=== PATIENT | female | born 1965 | race Caucasian/White ===

== ENCOUNTER 2024-09-26 11:13 | Inpatient (IN) | payer MEDICAID, SELFPAY ==
[2024-09-26] VITALS (7 sets, daily range): BP systolic 110–143; BP diastolic 61–86; PULSE 86–118; RESP 18; TEMP 36.2–37.4; O2SAT 98–100; BMI 28.0; BMI 25.8
--- NOTE | 2024-09-26 11:24 | EKG_ITS ---
[facility] Test Date: 2024-09-26 Pat Name: BETTE FLORES Department: Room: - Gender: Female Director Regulatory Affairs: : 1965 Requested By: Luis Kirkpatrick Order Number: [id number] Reading MD: Luis Kirkpatrick Measurements Intervals [place] Rate: 95 P: 77 OH: 100 QRS: -7 QRSD: 86 T: 48 QT: 364 QTc: 460 Interpretive Statements SINUS RHYTHM WITH SHORT OH INTERVAL Compared to ECG 07/12/2024 13:32:00 Short OH interval now present /store/S0/[id number].pdf
--- NOTE | 2024-09-26 11:25 | XR_ITS ---
Examination: Abdomen AP single view Technique: AP portable supine abdomen, single view Exam date and time: September 26, 2024 1252 hours INDICATIONS: Sepsis alert FINDINGS: Moderate stool throughout the colon No obstruction No free air Multiple calcific densities overlying the left kidney including possibly in the left renal pelvis IMPRESSION: Multiple left renal calculi
--- NOTE | 2024-09-26 11:25 | PD.EDADULT ---
ED General RME/HPI General Chief complaint: Altered Mental Status Stated complaint: AMS Time Seen by Provider: 09/26/24 11:23 Arrival date/time: 09/26/24 11:13 CC: Weakness HPI patient presents the ER via EMS for generalized weakness over the past 7 days states the patient can no longer stand which is new. EMS report the patient began altered mental status. Patient is complaining severely of rectal pain secondary to anal fissures. Patient is pale appearing, awake alert oriented self and place. Patient has no other complaints other than general weakness. At 1229 I spoke with the who came at bedside. He explains that the patient has run out of pain medications over the holidays cannot get a refill, since then the patient is reluctant to eat secondary to rectal pain and bowel movement so she stopping having bowel movements and have increased in weakness. Related Data Previous Rx's ?Medication ?Instructions ?Recorded lidocaine 5 % topical cream 1 applic topical BID PRN pain #30 07/13/24 grams oxycodone-acetaminophen 5 mg-325 1 tab PO Q6H PRN pain #60 tabs 07/13/24 mg tablet tramadol 100 mg tablet 100 mg PO Q6H PRN pain #60 tabs 07/26/24 ibuprofen 600 mg tablet 600 mg PO Q6H PRN 6 tabs #30 tabs 07/29/24 Allergies Allergy/AdvReac Type Severity Reaction Status Date / Time No Known Allergies Allergy Verified 07/13/24 11:58 Review of Systems Review of Systems Narrative Review of Systems: GEN: No fever, no chills, no weight loss EYES: No discharge, no visual changes, no pain HEENT: No ear pain, no congestion, no sore throat PULM: No shortness of breath, no cough, no congestion CV: No chest pain, no dyspnea on exertion, no palpitations GI: No nausea, no vomiting, no diarrhea, no pain, no constipation : No frequency, no urgency, no dysuria MUSC/SKEL: No joint pain, no back pain SKIN: No rash PSYCH: No hallucinations, no depression HEME/LYMPH: No easy bleeding or bruising tendencies NEURO: + weakness, no headache Past Medical History Past Medical History NEUROLOGIC: Negative Neurological Disorders or Seizures CARDIAC: Negative Cardiac Disorders or Congestive Heart Failure RESPIRATORY: Negative Chronic Obstructive Pulmonary Disease (COPD) GASTROINTESTINAL: Negative Gastrointestinal Disorders GENITOURINARY: Negative Genitourinary Disorders or Renal Disease REPRODUCTIVE: Positive Previous Pregnancies MUSCULOSKELETAL: Negative Musculoskeletal Disorders ENDOCRINE: Negative Endocrine Disorders, Diabetes Mellitus Type 1 or Diabetes Mellitus Type 2 HEMATOLOGIC: Positive Blood Disorders and Anemia OTHER HISTORY: Positive Blood Transfusions, Chicken Pox, Measles and Mumps; Negative Hospitalization, Autoimmune Disease, Shingles, Blood Transfusion Reaction, Anesthesia Reactions or Cancer Family History FAMILY HISTORY: Negative Family Psychiatric Problems, Family Respiratory Disorders, Family Cardiac Disorders, Family Gastrointestinal Problems, Family Cancer, Family Surgery or Family Anesthesia Reaction Social History SMOKING STATUS: Never smoker SUBSTANCE USE: does not use ED Exam Narrative Physical exam: [General: In moderate discomfort but not in any acute distress Head normocephalic HEENT: Eyes pupils are PERRLA EOMs are intact. Within acceptable limits Neck is supple nontender no JVD no edema Chest equal chest rise nontender to palpation Respiratory: Clear to auscultation no wheezes crackles or rubs CV: Rate rhythm is regular no murmurs rubs or clicks Abdomen is distended secondary to body habitus soft nontender no masses positive bowel sounds all 4 quadrants Back: No CVA tenderness no spinous process tenderness from cervical spine thoracic and lumbar spine Skin: Pale, intact no petechiae rash induration ulceration or crepitus Extremities: Moving all extremity against resistance cap refill less than 2 seconds neurosensory intact Neuro: Awake alert oriented x2, person and place, Glascow coma 15 no focal deficits] Course Course Course Narrative: Reassessment the patient met at 1515, CT showed the patient has significant definitely enlarged bladder. Humphries catheter was placed approximately 2.5 L of dark-colored urine was drained and it continues to drain. A total of 2600 mL drained from the bladder. Patient's condition discussed with , they are aware of the mass in the abdomen. At this time they directed me to pursue how they can fight this mass. Patient's case then discussed with Dr. Meek, who recommends the patient be admitted to ensure that there is a return to normalcy of the renal function as well as arrange for biopsy of the mass if possible with ultimate referral to oncology if necessary. Family members are in agreement with this plan. Discussed the case with Dr. Agusto Gordillo and Dr. Hadley who agreed to accept the patient for admission. 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 Care 09/26/24 11:24 Active Continuous Pulse Oximetry STAT Care 09/26/24 11:24 Completed EKG (ED ONLY) *Do not use* NOW Care 09/26/24 11:24 Completed Humphries [Urinary Catheter] QS Care 09/26/24 14:55 Active In and Out Catheter X1PRN Care 09/26/24 11:24 Completed Insert IV NOW Care 09/26/24 11:24 Active NPO NOW Care 09/26/24 17:51 Active NPO STAT Care 09/26/24 11:24 Active Notify provider NEEDED Care 09/26/24 17:48 Active Obtain weight daily Care 09/26/24 17:49 Active Strict Intake and Output Routine Care 09/26/24 11:24 Ordered Consult to General Surgery Stat Cons 09/26/24 16:41 Ordered Consult to General Surgery Stat Cons 09/26/24 17:58 Ordered Consult to Oncology Stat Cons 09/26/24 17:59 Ordered Diet NPO (NOW) Diet 09/26/24 17:[address] abdomen pelvis wo con Stat Exams 09/26/24 13:05 Completed EKG (ED Only) Stat Exams 09/26/24 11:24 Draft IR biopsy transcatheter Stat Exams 09/26/24 Ordered XR abdomen 1V Stat Exams 09/26/24 11:25 Completed A1C [Glycohemoglobin w (eAG)] AM DRAW Lab 09/27/24 05:00 Ordered B-Type Natriuretic Peptide Stat Lab 09/26/24 11:47 Completed Blood Culture (Lab) Stat Lab 09/26/24 11:47 Received CBC AM DRAW Lab 09/28/24 05:00 Ordered CBC AM DRAW Lab 09/29/24 05:00 Ordered CBC AM DRAW Lab 09/27/24 05:00 Ordered CBC Stat Lab 09/26/24 11:47 Completed Comprehensive Metabolic Panel AM DRAW Lab 09/28/24 05:00 Ordered Comprehensive Metabolic Panel AM DRAW Lab 09/29/24 05:00 Ordered Comprehensive Metabolic Panel AM DRAW Lab 09/27/24 05:00 Ordered Comprehensive Metabolic Panel Stat Lab 09/26/24 11:47 Completed LDH (Lactate Dehydrogenase) Stat Lab 09/26/24 11:47 Completed Lactate (Lactic Acid) Stat Lab 09/26/24 11:47 Completed Lipase Stat Lab 09/26/24 11:47 Completed Lipid Panel AM DRAW Lab 09/27/24 05:00 Ordered Magnesium AM DRAW Lab 09/28/24 05:00 Ordered Magnesium AM DRAW Lab 09/29/24 05:00 Ordered Magnesium AM DRAW Lab 09/27/24 05:00 Ordered Magnesium Stat Lab 09/26/24 11:47 Completed Partial Thromboplastin Time AM DRAW Lab 09/27/24 05:00 Ordered Partial Thromboplastin Time Stat Lab 09/26/24 11:47 Completed Phosphorous AM DRAW Lab 09/28/24 05:00 Ordered Phosphorous AM DRAW Lab 09/29/24 05:00 Ordered Phosphorous AM DRAW Lab 09/27/24 05:00 Ordered Phosphorous Stat Lab 09/26/24 11:47 Completed Procalcitonin Stat Lab 09/26/24 11:47 Completed Prothrombin Time with INR AM DRAW Lab 09/28/24 05:00 Ordered Prothrombin Time with INR AM DRAW Lab 09/29/24 05:00 Ordered Prothrombin Time with INR AM DRAW Lab 09/27/24 05:00 Ordered Prothrombin Time with INR Stat Lab 09/26/24 11:47 Completed Thyroid Stimulating Hormone AM DRAW Lab 09/27/24 05:00 Ordered Troponin I AM DRAW Lab 09/27/24 05:00 Ordered Troponin I Stat Lab 09/26/24 11:47 Completed Type and Screen Stat Lab 09/26/24 11:47 Completed Urinalysis Stat Lab 09/26/24 12:36 Completed Urine Culture Stat Lab 09/26/24 12:36 Received Acetaminophen Tab [Tylenol Tab] Med 09/26/24 17:53 Active 650 mg PO Q6H PRN Folic Acid Med 09/29/24 09:00 Active 1 mg PO QDAY Folic Acid Inj Med 09/27/24 09:00 Active 1 mg IVP QDAY HYDROcodone*/APAP 5/325 [[place]ster 5/325] Med 09/26/24 17:53 Active 1 tab PO Q4HR PRN HYDROmorphone INJ [Dilaudid Inj] Med 09/26/24 17:53 Discontinued 0.5 mg IVP Q6HR PRN Heparin Inj Med 09/26/24 21:00 Active 5,000 unit SC Q12HR Magnesium Sulfate 2 GM Ivpb [Magnesium Sulfate Ivpb] Med 09/26/24 18:01 Discontinued 2 gm in 50 ml IV X1 Morphine Inj Med 09/26/24 12:29 Discontinued 4 mg IVP X1 ONE Morphine Inj Med 09/26/24 15:00 Discontinued 4 mg IVP X1 ONE Ondansetron Inj [Zofran Inj] Med 09/26/24 17:53 Active 4 mg IV Q6H PRN Ondansetron Inj [Zofran Inj] Med 09/26/24 12:29 Discontinued 4 mg IV X1 ONE Pantoprazole Inj [Protonix Inj] Med 09/26/24 21:00 Active 40 mg IVP Q12HR Sodium Chloride 0.9% 1000 ml [Ns] 1,000 ml Med 09/26/24 13:23 Discontinued IV 999 mls/hr Thiamine Inj [Vitamin B-1 Inj] Med 09/27/24 09:00 Active 100 mg IVP QDAY Thiamine [Vitamin B-1] Med 09/29/24 09:00 Discontinued 100 mg PO QDAY Code Status Routine Oth 09/26/24 17:48 Ordered Oxygen Delivery NOW RT 09/26/24 11:24 Active Vital Signs Vital signs: Vital Signs Temperature 97.5 F 09/26/24 11:20 Pulse Rate 105 H 09/26/24 11:20 Respiratory Rate 18 09/26/24 11:20 Blood Pressure 119/71 09/26/24 11:20 Pulse Oximetry (%) 100 09/26/24 11:20 Oxygen Delivery Method Room Air 09/26/24 11:20 [facility] Patient data External records reviewed:: [facility] previous records and EMS form Clinical information provided by:: patient and EMS Social determinants that could affect healthcare access:: none Patient has the following chronic illnesses:: Review of the medical record show the patient has recently diagnosed with anal carcinoma is followed by Dr. Meek How is presenting disease/condition affected by chronic disease/condition?: uneffected by Evaluation data The following diagnostics were reviewed and interpreted by me:: lab results, radiology exam(s) and EKG tracing(s) Lab and/or radiology exams considered but not ordered:: EKG performed at 1455 shows a ventricular rate of 95 OK interval 100 QRS of 86 QTc of 417 is normal sinus rhythm. Baseline artifact. CBC shows leukocytosis of 14.6 with an anemia of hemoglobin of 7.1 hematocrit 22.5 with platelets of 177 Coags PT 13.1 INR 1.2 PTT 25.0 CMP shows sodium 136 potassium 3.6 chloride of 102 CO2 of 16.7 BUN of 57 creatinine 1.9 glucose 153. Lactic of 1.9 Pro-Geremias is 0.24 Mag of 2.9 AST 51 alk phos of 230 LDH of 1148 Troponin of 0.048 BNP of [address] of the abdomen as interpreted by radiology shows a large complex mass in the left abdomen with mural calcifications 15 x 16 x 11 cm but also moderate hydronephrosis with a pronounced bladder distention. Interpretation Summary: Renal insufficiency indicated in the blood work is probably secondary to a obstructive uropathy most likely related the patient's abdominal mass. Medications Medications considered but not ordered:: None Medication administrations:: Medication Administration History Acetaminophen (Acetaminophen 325 Mg Tablet) 650 mg PO Q6H PRN PRN Reason: Fever >101.5 Stop: 10/26/24 17:52 Hydrocodone Bitart/Acetaminophen (Hydrocodone/Apap 5/325 Tablet) 1 tab PO Q4HR PRN PRN Reason: PAIN SCALE 4-6 (Moderate Stop: 10/01/24 17:52 Folic Acid (Folic Acid 1 Mg Tablet) 1 mg PO QDAY [facility] Stop: 10/29/24 08:59 Folic Acid (Folic Acid Inj 1 Mg/0.2 Ml) 1 mg IVP QDAY [facility] Stop: 09/29/24 08:59 Heparin Sodium (Porcine) (Heparin Sod Inj 5000 Unit/Ml Vial) 5,000 unit SC Q12HR [facility] Stop: 10/10/24 20:59 Last Admin: 09/26/24 21:01 Dose: 5,000 unit Documented By: JEFFERY Co-signed By: CG Hydromorphone HCl (Hydromorphone Inj 2 Mg/Ml Vial) 1 mg IVP Q4HR PRN PRN Reason: PAIN Stop: 10/01/24 17:52 Ceftriaxone Sodium/Dextrose (Rocephin/D5w 1gm Iv Premix) 50 mls @ 100 mls/hr IV QDAY [facility] Stop: 10/03/24 18:38 Last Admin: 09/26/24 19:56 Dose: 100 mls/hr Documented By: JEFFERY Ondansetron HCl (Ondansetron Inj 2 Mg/Ml Inj 2 Ml) 4 mg IV Q6H PRN; Protocol PRN Reason: NAUSEA OR VOMITING Stop: 10/26/24 17:52 Pantoprazole Sodium (Pantoprazole Inj 40 Mg Vial) 40 mg IVP Q12HR [facility] Stop: 10/26/24 20:59 Last Admin: 09/26/24 21:01 Dose: 40 mg Documented By: JEFFERY Thiamine HCl (Thiamine Inj 100 Mg/Ml Vial 2 Ml) 100 mg IVP QDAY [facility] Stop: 09/29/24 08:59 Discontinued Medications Hydromorphone HCl (Hydromorphone Inj 2 Mg/Ml Vial) 0.5 mg IVP Q6HR PRN PRN Reason: PAIN Stop: 10/01/24 17:52 Sodium Chloride (Ns) 1,000 mls @ 999 mls/hr IV .Q1H1M ONE Stop: 09/26/24 14:23 Last Infusion: 09/26/24 15:39 Dose: Infused Documented By: Admin: 09/26/24 13:27 Dose: 999 mls/hr Documented By: DEONDRE Magnesium Sulfate (Magnesium Sulfate Ivpb) 2 gm in 50 mls @ 25 mls/hr IV X1 ONE Stop: 09/26/24 20:00 Last Admin: 09/26/24 18:38 Dose: Not Given Documented By: DEONDRE Non-Admin Reason: Contraindicated Comments: Dont give per Dr. Tate Morphine Sulfate (Morphine Sulf Inj 10 Mg/Ml Vial) 4 mg IVP X1 ONE Stop: 09/26/24 12:30 Last Admin: 09/26/24 12:40 Dose: 4 mg Documented By: DEONDRE Morphine Sulfate (Morphine Sulf Inj 10 Mg/Ml Vial) 4 mg IVP X1 ONE Stop: 09/26/24 15:01 Last Admin: 09/26/24 15:04 Dose: 4 mg Documented By: DEONDRE Ondansetron HCl (Ondansetron Inj 2 Mg/Ml Inj 2 Ml) 4 mg IV X1 ONE; Protocol Stop: 09/26/24 12:30 Last Admin: 09/26/24 12:39 Dose: 4 mg Documented By: DEONDRE Thiamine HCl (Thiamine 100 Mg Tablet) 100 mg PO QDAY [facility] Stop: 10/29/24 08:59 None Consultations Consultation(s) initiated? (list below): Yes Diagnosis Differential Diagnosis ED Complaint MDM: Abdominal mass rectal mass dehydration urinary retention Most likely diagnosis given after review of the tests above:: Abdominal mass dehydration urinary retention Admission Indicated Admission indicated?: indicated Explain why admission is indicated or not indicated:: Requires further medical management Admission Request Was there a request for admission?: No Disposition Plan Disposition Plan: Admit Medical Decision Making Differential Diagnosis Differential Diagnosis: Abdominal mass rectal mass dehydration urinary retention Lab Data 09/26/24 11:47 09/26/24 11:47 Labs: Lab Results 09/26/24 09/26/24 Range/Units 11:47 12:36 WBC 14.6 H (3.6-11.0) Thou/mm3 RBC 2.73 L (4.00-5.20) Miln/mm3 Hgb 7.1 L (12.0-16.0) g/dL Hct 22.5 L (36.0-46.0) % MCV 82 (80-100) fL MCH 26.0 (25.0-35.0) pg MCHC 31.6 (31.0-37.0) g/dl RDW Std Deviation 75.4 H (36.4-46.3) fL Plt Count 177 (140-440) Thou/mm3 Neut % (Auto) 63 (37-80) % Lymph % (Auto) 18 (10-50) % Barton % (Auto) 11 (0-12) % Eos % (Auto) 1 (0-10) % Baso % (Auto) 1 (0-2.5) % Neut # (Auto) 9.2 H (1.8-7.7) Thou/mm3 Lymph # (Auto) 2.6 (1.0-4.8) Thou/mm3 Barton # (Auto) 1.5 H (0.0-0.8) Thou/mm3 Eos # (Auto) 0.1 (0.0-0.5) Thou/mm3 Baso # (Auto) 0.1 (0.0-0.2) Thou/mm3 Immature Gran # (Auto) 1.02 H (0.00-0.00) Thou/mm3 Absolute Nucleated RBC 0.52 H (0.00-0.00) Thou/mm3 Immature Gran % 7 H (0-0) % Nucleated RBC % 4 H (0) /100 WBC PT 13.1 H (9.0-12.2) Seconds INR 1.2 (0.9-1.3) APTT 25.0 (22.0-36.0) Seconds Sodium 136 (136-145) mMol/L Potassium 3.6 (3.4-5.1) mMol/L Chloride 102 (98-107) mMol/L Carbon Dioxide 16.7 L (20.0-31.0) mMol/L Anion Gap 17 H (7-16) BUN 57 H (9-23) mg/dL Creatinine 1.9 H (0.6-1.3) mg/dL Estim Creat Clear Calc 33.4 L (>60) mL/min eGFR 30 L (60 - ) See Note BUN/Creatinine Ratio 30 H (12-20) Ratio Glucose 153 H (74-106) mg/dL Calculated Osmolality 290 (275-295) Lactic Acid 1.9 (0.4-2.0) mMol/L Calcium 9.4 (8.3-10.6) mg/dL Corrected Calcium 9.4 (8.5-10.1) mg/dL Phosphorus 4.8 (2.4-5.1) mg/dL Magnesium 2.9 H (1.6-2.6) mg/dL Total Bilirubin 0.5 (0.3-1.2) mg/dL AST 51 H (0-34) U/L ALT < 7 L (10-49) U/L Alkaline Phosphatase 230 H (46-116) U/L Lactate Dehydrogenase 1148 H (120-246) U/L Total Creatine Kinase 382 H (34-171) U/L Troponin I 0.048 H* (0.0-0.045) ng/mL B-Natriuretic Peptide 92 (0-100) pg/mL Total Protein 7.2 (5.7-8.2) gm/dL Albumin 4.3 (3.4-4.8) gm/dL Globulin 2.9 (2.3-3.5) gm/dL Albumin/Globulin Ratio 1.5 (1.2-2.2) Lipase 51 (12-53) U/L Procalcitonin 0.24 (0.0-0.49) ng/ml Ur Collection Type Clean Catch Urine Color Yellow (Lt Yel-Yel) Urine Clarity Hazy (Clear/Hazy) Urine pH 5.5 (5.0-7.0) Ur Specific [place] 1.022 (1.001-1.035) Urine Protein 1+ A (Neg - Trace) Urine Glucose (UA) Negative (Negative) Urine Ketones Negative (Negative) Urine Blood 3+ A (Negative) Urine Nitrite Negative (Negative) Urine Bilirubin Negative (Negative) Urine Urobilinogen (Auto) Negative (0.0-1.0) mg/dL Ur Leukocyte Esterase Positive (Negative) Urine RBC 119 H (0-3) /hpf Urine WBC 10 H (0-5) /hpf Ur Squamous Epith Cells 1 (0-5) /hpf Urine Bacteria None (None) Blood Type O Negative Antibody Screen NEGATIVE Blood Bank Wristband ID Yes Discharge Plan Plan Patient Disposition: Admit Acute Care w/in Hospital Patient condition on transfer: Stable Problem List Clinical Impression: Acute renal insufficiency, Acute urinary retention, Abdominal mass, Pain, rectal PA/SPECIAL EFFECTS TECHNICIAN Supervising Physician PA/SPECIAL EFFECTS TECHNICIAN Supervising Physician: Luis Beebe ENP
[2024-09-26 11:56] LABS: Lactate (Lactic Acid) 1.9 mMol/L (0.4-2.0)
[2024-09-26 12:03] LABS: Basophils # (Auto) 0.1 Thou/mm3 (0.0-0.2); Basophils % (Auto) 1 % (0-2.5); Eosinophils # (Auto) 0.1 Thou/mm3 (0.0-0.5); Eosinophils % (Auto) 1 % (0-10); Hematocrit 22.5 % (36.0-46.0); Immature Granulocytes % (Auto) 7 % (0-0); Immature Granulocytes Auto 1.02 Thou/mm3 (0.00-0.00); Lymphocytes # (Auto) 2.6 Thou/mm3 (1.0-4.8); Lymphocytes % (Auto) 18 % (10-50); Mean Corpuscular HGB Conc 31.6 g/dl (31.0-37.0); Mean Corpuscular Volume 82 fL (80-100); Monocytes # (Auto) 1.5 Thou/mm3 (0.0-0.8); Monocytes % (Auto) 11 % (0-12); Neutrophils # (Auto) 9.2 Thou/mm3 (1.8-7.7); Neutrophils % (Auto) 63 % (37-80); Nucleated Red Blood Cell # 0.52 Thou/mm3 (0.00-0.00); Nucleated Red Blood Cell % 4 /100 WBC (0); Platelet Count 177 Thou/mm3 (140-440); RDW Standard Deviation 75.4 fL (36.4-46.3); Red Blood Count 2.73 Miln/mm3 (4.00-5.20); White Blood Count 14.6 Thou/mm3 (3.6-11.0)
[2024-09-26 12:08] LABS: Hemoglobin 7.1 g/dL (12.0-16.0)
[2024-09-26 12:15] LABS: B-Type Natriuretic Peptide 92 pg/mL (0-100)
[2024-09-26 12:17] LABS: INR 1.2 (0.9-1.3); Prothrombin Time 13.1 Seconds (9.0-12.2)
[2024-09-26 12:30] LABS: Alanine Aminotransferase < 7 U/L (10-49); Albumin, Serum 4.3 gm/dL (3.4-4.8); Albumin/Globulin Ratio 1.5 (1.2-2.2); Alkaline Phosphatase 230 U/L (46-116); Anion Gap 17 (7-16); Aspartate Amino Transferase 51 U/L (0-34); BUN/Creatinine Ratio 30 Ratio (12-20); Bilirubin,Total 0.5 mg/dL (0.3-1.2); Blood Urea Nitrogen 57 mg/dL (9-23); Calcium 9.4 mg/dL (8.3-10.6); Calcium (Corrected) 9.4 mg/dL (8.5-10.1); Carbon Dioxide 16.7 mMol/L (20.0-31.0); Chloride 102 mMol/L (98-107); Creatinine (Component) 1.9 mg/dL (0.6-1.3); Estimated Creatinine Clearance 33.4 mL/min (>60); Globulin 2.9 gm/dL (2.3-3.5); Glucose 153 mg/dL (74-106); LDH (Lactate Dehydrogenase) 1148 U/L (120-246); Lipase 51 U/L (12-53); Magnesium 2.9 mg/dL (1.6-2.6); Osmolality,Calculated 290 (275-295); Phosphorous 4.8 mg/dL (2.4-5.1); Potassium 3.6 mMol/L (3.4-5.1); Procalcitonin 0.24 ng/ml (0.0-0.49); Sodium 136 mMol/L (136-145); Total Protein 7.2 gm/dL (5.7-8.2); eGFR 30 See Note
[2024-09-26 12:33] LABS: Troponin I 0.048 ng/mL (0.0-0.045)
[2024-09-26] MEDS: ONDANSETRON INJ 2 MG/ML INJ 2 ML 4 MG IV (12:39)
[2024-09-26] MEDS: MORPHINE SULF INJ 10 MG/ML VIAL 4 MG IVP ×2 (12:40→15:04)
[2024-09-26 12:50] LABS: Collection Type, Urine Clean Catch
--- NOTE | 2024-09-26 13:05 | XR_ITS ---
Examination: CT abdomen and pelvis without contrast. Coronal 3-D reconstructions. Sagittal 2-D reconstructions. Date and time of exam:September 26, 2024 at 1346 hours INDICATIONS: Onset rectal pain today CTDI: vol (mGy): 7.58 DLP: (mGycm): 452 Technique: Axial images of the abdomen have been obtained, 3 mm slice thickness Intravenous contrast material has not been administered. Low dose protocols were performed. One or more of the following dose reduction techniques were used; automated exposure control, adjustment of the mA and/or KV according to patient size, use of iterative reconstruction technique. Findings: Right lower lobe solid 38 mm liver lesion Numerous gallstones No pancreatic mass Nodular thickening both adrenal glands Bilateral multiple renal calculi ranging in size from 1 - 5 mm Mild to moderate hydronephrosis likely related to pronounced bladder distention Abdominal aortic calcification no aneurysmal dilatation Left abdomen partially cystic mass with mural thickening and calcifications, the mass measures 15 x 16 x 11 cm Marked abnormal thickening of the rectosigmoid, the beltran of the rectum measuring up to 4 cm severely impinging upon the rectal lumen Severe osteopenia 12 mm radiolucent lesion in the S3 vertebral body sagittal image 118 IMPRESSION: Findings most consistent with rectal tumor, recommend direct inspection 30 mm hepatic lesion likely hepatic metastasis, recommend MRI abdomen follow-up pre and postcontrast Multiple renal calculi Mild to moderate hydronephrosis likely related to pronounced bladder distention Large complex mass in the left abdomen with mural calcifications, 15 x 16 x 11 cm, assessment is limited without intravenous contrast, recommend abdominal pelvic ultrasound follow-up Suspicious for osteolytic lesion S3 vertebral body, recommend whole body bone scan follow-up
[2024-09-26] MEDS: SODIUM CHLORIDE 0.9% 1000 ML 1,000 ML 999 ML IV (13:27)
[2024-09-26 13:38] LABS: Bilirubin,Urine Negative (Negative); Blood,Urine 3+ (Negative); Color,Urine Yellow (Lt Yel-Yel); Glucose, Urine Negative (Negative); Ketones,Urine Negative (Negative); Nitrite,Urine Negative (Negative); PH,Urine 5.5 (5.0-7.0); Protein,Urine 1+ (Neg - Trace); RBC,Urine 119 /hpf (0-3); Specific Gravity,Urine 1.022 (1.001-1.035); Squamous Epithelial Cell,Urine 1 /hpf (0-5); Urobilinogen,Urine Negative mg/dL (0.0-1.0); WBC,Urine 10 /hpf (0-5)
[2024-09-26 13:44] LABS: Clarity,Urine Hazy (Clear/Hazy); Leukocyte Esterase,Urine Positive (Negative)
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
[2024-09-26 19:06] LABS: Creatine Kinase 382 U/L (34-171)
[2024-09-26] MEDS: cefTRIAXone/D5w 1gm IV premix 50 ML IV (19:56)
[2024-09-26] MEDS: HEPARIN SOD INJ 5000 UNIT/ML VIAL SC (21:01)
[2024-09-26] MEDS: PANTOPRAZOLE INJ 40 MG VIAL IVP (21:01)
[2024-09-27] VITALS (15 sets, daily range): BP systolic 110–161; BP diastolic 64–95; PULSE 70–127; RESP 16–98; TEMP 2.7–37.1; O2SAT 97–99; BMI 25.7
[2024-09-27] MEDS: HYDROmorphone INJ 2 MG/ML VIAL 1 MG IVP ×4 (01:33→23:46)
[2024-09-27 05:59] LABS: Basophils # (Auto) 0.1 Thou/mm3 (0.0-0.2); Basophils % (Auto) 1 % (0-2.5); Eosinophils # (Auto) 0.2 Thou/mm3 (0.0-0.5); Eosinophils % (Auto) 2 % (0-10); Immature Granulocytes % (Auto) 9 % (0-0); Immature Granulocytes Auto 1.09 Thou/mm3 (0.00-0.00); Lymphocytes # (Auto) 2.5 Thou/mm3 (1.0-4.8); Lymphocytes % (Auto) 20 % (10-50); Mean Corpuscular Hemoglobin 26.1 pg (25.0-35.0); Mean Corpuscular Volume 84 fL (80-100); Monocytes # (Auto) 1.1 Thou/mm3 (0.0-0.8); Monocytes % (Auto) 9 % (0-12); Neutrophils # (Auto) 7.4 Thou/mm3 (1.8-7.7); Neutrophils % (Auto) 60 % (37-80); Nucleated Red Blood Cell # 0.42 Thou/mm3 (0.00-0.00); Nucleated Red Blood Cell % 3 /100 WBC (0); Platelet Count 159 Thou/mm3 (140-440); RDW Standard Deviation 78.1 fL (36.4-46.3); Red Blood Count 2.49 Miln/mm3 (4.00-5.20); White Blood Count 12.4 Thou/mm3 (3.6-11.0)
[2024-09-27 06:01] LABS: Hemoglobin 6.5 g/dL (12.0-16.0)
--- NOTE | 2024-09-27 06:01 | PC.NURSE ---
Was contacted by Lab ([facility]) regarding critical value for patients Hgb of 6.5.
--- NOTE | 2024-09-27 06:12 | PC.NURSE ---
Tried to contact doctor regarding patient critical lab value
[2024-09-27 06:17] LABS: INR 1.2 (0.9-1.3); Partial Thromboplastin Time 27.6 Seconds (22.0-36.0); Prothrombin Time 12.6 Seconds (9.0-12.2)
--- NOTE | 2024-09-27 06:33 | PD.ONCCONS ---
HPI Data of Consult Requesting Physician: Karly Hadley DO Primary Care Provider: Sumaya Maldonado Consult Narrative Reason for consult: Adenocarcinoma anal region with likely mets History of present illness: Patient an unfortunate 58-year-old lady with pain obstruction symptoms lower GI bleeding, and already had an excisional biopsy of anal mass performed by Dr. Meek 07/13/2024 revealing mucinous adenocarcinoma extending to specimen age. Patient was recommended to have a staging workup and referred to oncology but reportedly declined. Patient admitted with pain obstructive symptoms anemia of 7.1 hemoglobin drop this a.m. to 6.5, with CT abdomen pelvis without contrast due to elevated renal functions 09/26/2024 showing rectal tumor with likely hepatic mets 30 mm mild to moderate hydronephrosis likely related to bladder distention large complex mass left abdomen 15 x 16 x 11 cm as well as osteolytic lesion S3 likely bone mets. Codey Knight states that patient is at least open to diagnostic workup and any treatment that could at least alleviate patient's symptoms. cc:: cc: Karly Hadley DO Past Medical History Family History OTHER FAMILY HX: Denies family history of cancer Social History SOCIAL: No smoking or drinking history Past Medical History Comments PMH COMMENT: Prior diagnosis of anemia anorectal mass Meds Home Medications and Allergies Allergies Allergy/AdvReac Type Severity Reaction Status Date / Time No Known Allergies Allergy Verified 07/13/24 11:58 Exam Vital Signs Temp Pulse Resp BP Pulse Ox O2 Del Method 97.0 F 90 17 137/74 H 98 Room Air 09/27/24 04:00 09/27/24 04:00 09/27/24 04:00 09/27/24 04:00 09/27/24 04:00 09/27/24 04:00 Narrative Exam Patient lies in somnolent state seemingly comfortable under medication influence.. Results Labs 09/27/24 04:57 09/26/24 11:47 Labs: Short CBC 09/26/24 09/27/24 Range/Units 11:47 04:57 WBC 14.6 H 12.4 H (3.6-11.0) Thou/mm3 Hgb 7.1 L 6.5 L* (12.0-16.0) g/dL Hct 22.5 L 21.0 L* (36.0-46.0) % Plt Count 177 159 (140-440) Thou/mm3 BMP 09/26/24 11:47 Sodium 136 Potassium 3.6 Chloride 102 Carbon Dioxide 16.7 L BUN 57 H Creatinine 1.9 H Glucose 153 H Calcium 9.4 Cardiac Enzymes 09/26/24 Range/Units 11:47 Total Creatine Kinase 382 H (34-171) U/L Troponin I 0.048 H* (0.0-0.045) ng/mL Liver Function 09/26/24 Range/Units 11:47 Total Bilirubin 0.5 (0.3-1.2) mg/dL AST 51 H (0-34) U/L ALT < 7 L (10-49) U/L Alkaline Phosphatase 230 H (46-116) U/L Albumin 4.3 (3.4-4.8) gm/dL Urine 09/26/24 Range/Units 12:36 Urine Color Yellow (Lt Yel-Yel) Urine Clarity Hazy (Clear/Hazy) Urine pH 5.5 (5.0-7.0) Ur Specific [place] 1.022 (1.001-1.035) Urine Protein 1+ A (Neg - Trace) Urine Glucose (UA) Negative (Negative) Assessment and Plan Additional Assessment & Plan Additional Plan: 1. 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 Meek 07/13/2024. Likley colorectal primary with anal extension due to the pathology. 2. According to , patient believed in karine healing and did not wish any further workup or treatments at the time. 3. Admitted with pain obstructiive syndrome bleeding anemia, now willing to at least get workup and be offered choices of treatment. 4. Preliminary studies suggest mets to bone liver abdominal region. IR path of abdominal mass reportedly pending. 5. Will follow. Thank you for allowing me to evaluate this patient.
[2024-09-27 06:45] LABS: Alanine Aminotransferase 16 U/L (10-49); Albumin/Globulin Ratio 1.4 (1.2-2.2); Alkaline Phosphatase 206 U/L (46-116); Anion Gap 15 (7-16); Aspartate Amino Transferase 40 U/L (0-34); BUN/Creatinine Ratio 35 Ratio (12-20); Bilirubin,Total 0.4 mg/dL (0.3-1.2); Blood Urea Nitrogen 53 mg/dL (9-23); Calcium 9.3 mg/dL (8.3-10.6); Calcium (Corrected) 9.3 mg/dL (8.5-10.1); Carbon Dioxide 18.9 mMol/L (20.0-31.0); Cardiac Risk Estimate 8.6 RATIO (3.7-5.6); Chloride 109 mMol/L (98-107); Cholesterol 268 mg/dL (132-200); Creatinine (Component) 1.5 mg/dL (0.6-1.3); Estimated Creatinine Clearance 40.7 mL/min (>60); Globulin 2.8 gm/dL (2.3-3.5); Glucose 94 mg/dL (74-106); HDL Cholesterol 31 mg/dL (40-60); LDL Cholesterol,Calculated 174 mg/dL (0-130); Magnesium 2.7 mg/dL (1.6-2.6); Osmolality,Calculated 299 (275-295); Phosphorous 4.8 mg/dL (2.4-5.1); Potassium 3.7 mMol/L (3.4-5.1); Sodium 143 mMol/L (136-145); Thyroid Stimulating Hormone 1.45 uIU/mL (0.55-4.78); Total Protein 6.8 gm/dL (5.7-8.2); Triglycerides 313 mg/dL (30-150); eGFR 40 See Note
--- NOTE | 2024-09-27 07:59 | PC.NURSE ---
Recvd order for Biopsy, Informed Boni AGUIRRE there is no Radiologist on site today for procedure.
[2024-09-27] MEDS: THIAMINE INJ 100 MG/ML VIAL 2 ML IVP (08:12)
[2024-09-27] MEDS: PANTOPRAZOLE INJ 40 MG VIAL IVP ×2 (08:15→21:31)
[2024-09-27] MEDS: ONDANSETRON INJ 2 MG/ML INJ 2 ML 4 MG IV ×2 (08:19→17:02)
[2024-09-27] MEDS: HEPARIN SOD INJ 5000 UNIT/ML VIAL SC ×2 (08:19→21:31)
[2024-09-27] MEDS: cefTRIAXone/D5w 1gm IV premix 50 ML IV (08:25)
[2024-09-27 08:43] LABS: Misc Send Out* See Sep Rpt
--- NOTE | 2024-09-27 09:22 | PC.SS ---
Patient Nathaly Knight is a 58 Year old female admitted for Rectal Adenocarcinoma. SS met with patient and patient's , Codye Knight at bedside. Patient asleep at the time of encounter. Codey reports he is patient's surrogate decision maker [phone]. Codey Reports patient is alert and oriented. Patient does need assistance completing ADL's. Prior to admission patient did not utilize any source of DME to assist with ambulation. Choice of pharmacy is [facility]. Patient's PCP is Erica Shell in [place]. At time of discharge patient will return back home. will provide transportation. Discharge plan: Home decision maker: , Codey Knight, PCP: Erica Shell
--- NOTE | 2024-09-27 10:05 | XR_ITS ---
Examination: CT brain head without contrast. 2-D sagittal coronal reconstructions Date and time of exam:September 27, 2024 at 1452 hrs. Indications: Altered mental status dizziness today, 38 mm solid right lobe liver lesion, mass in the rectosigmoid on CT abdomen pelvis September 26, 2024 CTDI: vol (mGy):50 DLP: (mGycm):915 Technique: Multiple CT axial sections of the brain have been obtained, 5 mm slice thickness. Contrast has not been administered. 2-D sagittal, coronal reconstructions have been obtained Low dose protocols were performed. One or more of the following dose reduction techniques were used; automated exposure control, adjustment of the mA and/or KV according to patient size, use of iterative reconstruction technique. Findings: The entire study is severely degraded by patient motion 25 mm right temporal lobe mass with significant surrounding edema Additional subtle edema in the left frontal lobe and left parietal lobe both anteriorly and posteriorly in the left parietal lobe Additional hyperdense mass 32 mm in the right frontal lobe The ventricles are not enlarged The frontal horns are shifted to the left at least 5 mm Impression: Multiple cerebral masses, differential would include cerebral metastatic disease, primary brain tumors not excluded Recommend brain MRI follow-up pre and postcontrast
--- NOTE | 2024-09-27 10:28 | ESCONSULT_ITS ---
HPI Consult details History of present illness: 58F who had [place] been [place] [facility] [place] fiss[place] s/p EUA, excisional biopsy of anal mass 07/13 with findings of mucinous adenocarcinoma, who preferred not to pursue staging workup or conventional treatment presenting to ER 09/26 with dehydration, altered mental status and urinary retention. Patient underwent CTAP showing a 3 cm hepatic lesion a complex abdominal lesion up to 16 cm, patient's known rectal lesion as well as a possible osteolytic les ion of S3. This morning patient also had hemoglobin of 6.5 for which she is receiving PRBC Review of Systems Review of Systems ROS Unobtainable: unobtainable due to mental status Meds Home Medications and Allergies Allergies Allergy/AdvReac Type Severity Reaction Status Date / Time No Known Allergies Allergy Verified 07/13/24 11:58 Exam Vital Signs Temp Pulse Resp BP Pulse Ox O2 Del Method 37 F L 85 18 120/64 98 Room Air 09/27/24 10:20 09/27/24 10:20 09/27/24 10:20 09/27/24 10:20 09/27/24 10:20 09/27/24 07:48 Constitutional Constitutional: no acute distress and somnolent Routine Respiratory Exam Respiratory: Present no resp distress Results Results: Laboratory Laboratory results: results reviewed Results: Imaging CT scan - abdomen: report reviewed and image reviewed Assessment & Plan Plan 58F who had initially been [place] [facility] [place] fiss[place] s/p EUA, excisional biopsy of anal mass 07/13 with findings of mucinous adenocarcinoma, admitted with dehydration/AMS/urinary retention with CT findings of a large intra-abdominal mass as well as hepatic lesion and possible osteolytic lesion. Patient is awaiting biopsy of abdominal mass. I spoke to patient's and son, they are understanding that next steps will be determined by the completion of the staging workup but they did indicate that if surgery is a possibility they would prefer evaluation at [place]. Follow-up IR for biopsy CT head and chest
--- NOTE | 2024-09-27 10:36 | PC.SS ---
SS follow up note; Patient is pending a Biopsy.
[2024-09-27] MEDS: FOLIC ACID INJ 1 MG/0.2 ML IVP (11:11)
--- NOTE | 2024-09-27 11:49 | ESPR_ITS ---
<Statement entered by Grisel Mercado MD - 09/27/24 11:56> Patient seen with family at bedside. She is tired. Planned for biopsy today however IR unavailable for procedures until the new year. Will restart diet as long as patient can tolerate. Labs significant for anemia at 6.5 and a mild troponin leak. Anemia likely related to blood loss from the adenocarcinoma. Will transfuse a unit of blood. General surgeon Dr. Meek and oncologist Dr. Erica power. Will also get a head and chest CT to assess for possible mets. Grisel Mercado MD PGY-3 Documentation for date of: 09/27/24 Subjective Subjective Interval history: Nathaly Knight is a 58-year-old female with a past medical history of recently diagnosed anal adenocarcinoma (06/2024) who is admitted for work-up of intraabdominal mass, obstructive uropathy, and malnutrition. 09/27: No acute overnight events. Patient seen and examined at bedside with present who had spoken to both general surgery and oncology who both are awaiting for biopsy results to help guide further management. However, IR would not be available until (09/29) and this biopsy of intra-abdominal mass will have to wait until then. CT head obtained today showed multiple intracranial masses, and discussion with family at bedside regarding patient prognosis and further plans took place. Family understands and agrees. Exam Vital Signs Temp Pulse Resp BP Pulse Ox O2 Del Method 37 F L 85 18 120/64 98 Room Air 09/27/24 10:20 09/27/24 10:20 09/27/24 10:20 09/27/24 10:20 09/27/24 10:20 09/27/24 07:48 Narrative Exam General: AOx3, no acute distress, fatigued, falls asleep easily during conversation HEENT: NC/AT, mucous membranes moist, bilateral sclera anicteric Cardiovascular: tachycardic, regular rhythm, S1/S2 present, no murmurs appreciated Pulmonary: clear to auscultation bilaterally, no rales/rhonchi/wheezes Abdominal: tender in lower quadrants bilaterally, soft, non-distended Musculoskeletal: normal ROM, no peripheral edema Skin: warm and dry, intact, no rashes Neuro: CN II-XII intact, no focal deficits Objective Labs 09/27/24 14:25 09/27/24 04:57 Labs: Laboratory Results - last 24 hr 09/26/24 09/26/24 09/27/24 11:47 12:36 04:57 WBC 14.6 H 12.4 H RBC 2.73 L 2.49 L Hgb 7.1 L 6.5 L* Hct 22.5 L 21.0 L* MCV 82 84 MCH 26.0 26.1 MCHC 31.6 31.0 RDW Std Deviation 75.4 H 78.1 H Plt Count 177 159 Neut % (Auto) 63 60 Lymph % (Auto) 18 20 [place] % (Auto) 11 9 Eos % (Auto) 1 2 Baso % (Auto) 1 1 Neut # (Auto) 9.2 H 7.4 Lymph # (Auto) 2.6 2.5 [place] # (Auto) 1.5 H 1.1 H Eos # (Auto) 0.1 0.2 Baso # (Auto) 0.1 0.1 Immature Gran # (Auto) 1.02 H 1.09 H Absolute Nucleated RBC 0.52 H 0.42 H Immature Gran % 7 H 9 H Nucleated RBC % 4 H 3 H PT 13.1 H 12.6 H INR 1.2 1.2 APTT 25.0 27.6 Sodium 136 143 Potassium 3.6 3.7 Chloride 102 109 H Carbon Dioxide 16.7 L 18.9 L Anion Gap 17 H 15 BUN 57 H 53 H Creatinine 1.9 H 1.5 H Estim Creat Clear Calc 33.4 L 40.7 L eGFR 30 L 40 L BUN/Creatinine Ratio 30 H 35 H Glucose [address] Glu mg/dL Cancelled Hemoglobin A1c Cancelled Calculated Osmolality 290 299 H Lactic Acid 1.9 Calcium 9.4 9.3 Corrected Calcium 9.4 9.3 Phosphorus 4.8 4.8 Magnesium 2.9 H 2.7 H Total Bilirubin 0.5 0.4 AST 51 H 40 H ALT < 7 L 16 Alkaline Phosphatase 230 H 206 H D Lactate Dehydrogenase 1148 H Total Creatine Kinase 382 H Troponin I 0.048 H* 0.050 H* B-Natriuretic Peptide 92 Total Protein 7.2 6.8 Albumin 4.3 4.0 Globulin 2.9 2.8 Albumin/Globulin Ratio 1.5 1.4 Triglycerides 313 H Cholesterol 268 H LDL Cholesterol, Calc 174 H HDL Cholesterol 31 L Cholesterol/HDL Ratio 8.6 H Lipase 51 Procalcitonin 0.24 TSH 1.45 Ur Collection Type Clean Catch Urine Color Yellow Urine Clarity Hazy Urine pH 5.5 Ur Specific [place] 1.022 Urine Protein 1+ A Urine Glucose (UA) Negative Urine Ketones Negative Urine Blood 3+ A Urine Nitrite Negative Urine Bilirubin Negative Urine Urobilinogen (Auto) Negative Ur Leukocyte Esterase Positive Urine RBC 119 H Urine WBC 10 H Ur Squamous Epith Cells 1 Urine Bacteria None Blood Type O Negative Antibody Screen NEGATIVE Crossmatch See Detail Blood Bank Wristband ID Yes Quality Measures Quality Measures VTE prophylaxis Assessment & Plan Assessment Current Active Medications: Generic Name Dose Route Start Last Admin Trade Name Freq PRN Reason Stop Dose Admin Acetaminophen 650 mg 09/26/24 17:53 Acetaminophen 325 Mg Tablet PO 10/26/24 17:52 Q6H PRN Fever >101.5 Hydrocodone Bitart/Acetaminophen 1 tab 09/26/24 17:53 Hydrocodone/Apap 5/325 Tablet PO 10/01/24 17:52 Q4HR PRN PAIN SCALE 4-6 (Moderate Folic Acid 1 mg 09/29/24 09:00 Folic Acid 1 Mg Tablet PO 10/29/24 08:59 QDAY SARITA Folic Acid 1 mg 09/27/24 09:00 09/27/24 11:11 Folic Acid Inj 1 Mg/0.2 Ml IVP 09/29/24 08:59 1 mg QDAY SARITA Administration Heparin Sodium (Porcine) 5,000 unit 09/26/24 21:00 09/27/24 08:19 Heparin Sod Inj 5000 Unit/Ml Vial SC 10/10/24 20:59 5,000 unit Q12HR SARITA Administration Hydromorphone HCl 1 mg 09/26/24 18:15 09/27/24 08:20 Hydromorphone Inj 2 Mg/Ml Vial IVP 10/01/24 17:52 1 mg Q4HR PRN Administration PAIN Protocol Ceftriaxone Sodium/Dextrose 50 mls @ 100 mls/hr 09/26/24 18:39 09/27/24 08:55 Rocephin/D5w 1gm Iv Premix IV 10/03/24 18:38 Infused QDAY SARITA Infusion Ondansetron HCl 4 mg 09/26/24 17:53 09/27/24 08:19 Ondansetron Inj 2 Mg/Ml Inj 2 Ml IV 10/26/24 17:52 4 mg Q6H PRN Administration NAUSEA OR VOMITING Protocol Pantoprazole Sodium 40 mg 09/26/24 21:00 09/27/24 08:15 Pantoprazole Inj 40 Mg Vial IVP 10/26/24 20:59 40 mg Q12HR SARITA Administration Thiamine HCl 100 mg 09/27/24 09:00 09/27/24 08:12 Thiamine Inj 100 Mg/Ml Vial 2 Ml IVP 09/29/24 08:59 100 mg QDAY SARITA Administration Plan Nathaly Knight is a 58-year-old female with a past medical history of recently diagnosed anal adenocarcinoma (06/2024) who is admitted for work-up of intraabdominal mass, obstructive uropathy, and malnutrition. #Stage IV Mucinous adenocarcinoma #Protein Calorie Malnutrition 78 lb weight loss prior to diagnosis of adenocarcinoma, altered mentation, and generalized weakness in setting of decreased p.o. intake CT A/P: large complex mass in the left abdomen (15 x 16 x 11 cm) with a 30 mm hepatic lesion and osteolytic lesion of S3 vertebral body CT head: 25 mm right temporal lobe mass with significant surrounding edema, 13 mm right frontal lobe hyperdense mass, subtle edema in left frontal and parietal lobes ? IR consulted for biopsy of intra-abdominal mass ? Will have to wait until 09/29 ? General Surgery consulted, appreciate recommendations ? Oncology consulted, appreciate recommendations ? Pain management: Tylenol, [place], Dilaudid ? Referral to dietitian due to decreased p.o. intake - pending CT chest ? Dexamethasone 10 mg x 1 on 09/27, and subsequently 4 mg every 6 hours starting 09/28 #? Urinary tract infection #Obstructive uropathy #Acute kidney injury Humphries catheter placed with output of 2 L of dark, cola colored urine ? Ceftriaxone 1 g daily ? Follow-up urine culture #Normocytic anemia Patient noted to have chronic anemia since June 2024 S/p transfusion 1 pRBC 09/27 ? Type and cross in place ? Will continue to monitor and transfuse if Hgb < 7.0 Hospital management: Disposition: med tele Diet: High calorie/protein diet with Ensure twice daily with lunch and dinner Lines: peripheral DVT prophylaxis: heparin GI prophylaxis: pantoprazole Humphries: placed CODE STATUS: full code ----- Plan discussed with attending physician Dr. Hadley and senior resident physician Dr. Jess Tate MD PGY-1 Internal Medicine Attending Provider Attestation/Addendum I, Karly Hadley DO, attest that I was physically present for the spicer portions of the service and evaluated the patient with the resident and I reviewed and discussed the case with the resident and agree with the resident's findings and plans of care as documented above Patient seen and evaluated this AM. Patient is resting comfortably. at bedside and states that the patient has been more comfortable with pain being more controlled. Patient seen and evaluated by Oncology this AM. Pending biopsy of abdominal mass -which is scheduled for due to holidays and lack of IR services today. Urine appears yellow and clear today. Due to confusion and medial deviation of left eye, CT head was done showing multiple metastatic masses with surrounding edema. Will start on IV steroids to reduce edema at this time. CT chest remains pending to complete staging. Will have goals of care discussion with family tomorrow regarding CTH findings due to advanced disease. Patient has acute blood loss anemia 2/2 rectal mass. Will transfuse 1u of PRBCs. F/u posttransfusion H/H.
[2024-09-27] MEDS: HYDROcodone/APAP 5/325 TABLET 1 TAB PO (14:26)
[2024-09-27 15:01] LABS: Hemoglobin 7.7 g/dL (12.0-16.0)
[2024-09-27] MEDS: DEXAMETHASONE SOD PHOS INJ 10 MG/ML VIAL IV (16:58)
--- NOTE | 2024-09-27 20:01 | PC.NURSE ---
Dr. Samayoa notified regarding patient having A.Fib in 120s, not sustained, with occasional PVCs and PACs; patent asymptomatic, resting with eyes closed. Patient now sinus rhythm in 70s.
[2024-09-28] VITALS (11 sets, daily range): BP systolic 115–148; BP diastolic 69–98; PULSE 75–150; RESP 16–18; TEMP 36.1–36.7; O2SAT 96–99
[2024-09-28] MEDS: HYDROmorphone INJ 2 MG/ML VIAL 1 MG IVP ×5 (04:28→22:11)
--- NOTE | 2024-09-28 05:08 | PC.NURSE ---
Earlier in the shift, Dr. Samayoa notified of positive blood culture results: gram positive rods. No new orders.
[2024-09-28 05:50] LABS: Basophils # (Auto) 0.1 Thou/mm3 (0.0-0.2); Basophils % (Auto) 1 % (0-2.5); Eosinophils # (Auto) 0.1 Thou/mm3 (0.0-0.5); Eosinophils % (Auto) 1 % (0-10); Hematocrit 23.1 % (36.0-46.0); Immature Granulocytes % (Auto) 8 % (0-0); Immature Granulocytes Auto 1.01 Thou/mm3 (0.00-0.00); Lymphocytes # (Auto) 2.2 Thou/mm3 (1.0-4.8); Lymphocytes % (Auto) 17 % (10-50); Mean Corpuscular Volume 84 fL (80-100); Monocytes # (Auto) 1.1 Thou/mm3 (0.0-0.8); Monocytes % (Auto) 8 % (0-12); Neutrophils # (Auto) 8.3 Thou/mm3 (1.8-7.7); Neutrophils % (Auto) 65 % (37-80); Nucleated Red Blood Cell # 0.22 Thou/mm3 (0.00-0.00); Nucleated Red Blood Cell % 2 /100 WBC (0); Platelet Count 124 Thou/mm3 (140-440); RDW Standard Deviation 68.5 fL (36.4-46.3); Red Blood Count 2.74 Miln/mm3 (4.00-5.20); White Blood Count 12.9 Thou/mm3 (3.6-11.0)
[2024-09-28 05:53] LABS: Hemoglobin 7.4 g/dL (12.0-16.0)
[2024-09-28 05:55] LABS: Alanine Aminotransferase 11 U/L (10-49); Albumin, Serum 3.8 gm/dL (3.4-4.8); Albumin/Globulin Ratio 1.5 (1.2-2.2); Alkaline Phosphatase 212 U/L (46-116); Anion Gap 14 (7-16); Aspartate Amino Transferase 55 U/L (0-34); BUN/Creatinine Ratio 40 Ratio (12-20); Bilirubin,Total 0.4 mg/dL (0.3-1.2); Blood Urea Nitrogen 40 mg/dL (9-23); Calcium 8.9 mg/dL (8.3-10.6); Calcium (Corrected) 9.1 mg/dL (8.5-10.1); Chloride 108 mMol/L (98-107); Globulin 2.5 gm/dL (2.3-3.5); Glucose 120 mg/dL (74-106); INR 1.2 (0.9-1.3); Magnesium 2.2 mg/dL (1.6-2.6); Osmolality,Calculated 290 (275-295); Phosphorous 4.6 mg/dL (2.4-5.1); Prothrombin Time 12.5 Seconds (9.0-12.2); Sodium 140 mMol/L (136-145); Total Protein 6.3 gm/dL (5.7-8.2); eGFR > 60 See Note
[2024-09-28] MEDS: THIAMINE INJ 100 MG/ML VIAL 2 ML IVP (08:50)
[2024-09-28] MEDS: cefTRIAXone/D5w 1gm IV premix 50 ML IV (08:50)
[2024-09-28] MEDS: PANTOPRAZOLE INJ 40 MG VIAL IVP ×2 (08:51→22:15)
[2024-09-28] MEDS: HEPARIN SOD INJ 5000 UNIT/ML VIAL SC ×2 (08:51→22:21)
--- NOTE | 2024-09-28 10:41 | ESPR_ITS ---
<Statement entered by Digna Jessica MD - 09/29/24 06:40> I attest that I was physically present for the evaluation, physical examination, lab and imaging review of the patient with the residents. I discussed the case with the residents and agree with the findings and plans of care as documented above. Had a meeting with patient's sons, case management and the medical team regarding goals of care. Explained about available options including hospice care in SNF, home with home health and aggressive investigation/management. The son stated they are leaning towards hospice care. The family will have discussion including the as well. We will also try to reach Dr. Maldonado for further recommendation/option and have another meeting tomorrow. Digna Jessica MD <Statement entered by Rashel Quinn MD - 09/28/24 14:32> Patient seen and assessed at bedside this morning. Goals of care discussion held with family regarding hospice. Son is open to home hospice, but would like further input from Dr. Maldonado. Dr. Maldonado will be back tomorrow hopefully for further recommendations. Case discussed with team. Rashel Quinn MD PGY3 Documentation for date of: 09/28/24 Subjective Subjective Interval history: Nathaly Knight is a 58-year-old female with a past medical history of recently diagnosed anal adenocarcinoma (06/2024) who is admitted for work-up of intraabdominal mass, obstructive uropathy, and malnutrition. 09/27: No acute overnight events. Patient seen and examined at bedside with present who had spoken to both general surgery and oncology who both are awaiting for biopsy results to help guide further management. However, IR would not be available until (09/29) and this biopsy of intra-abdominal mass will have to wait until then. CT head obtained today showed multiple intracranial masses, and discussion with family at bedside regarding patient prognosis and further plans took place. Family understands and agrees. 09/28: No acute overnight events. Patient seen and examined at bedside in AM with present. Further updated him on CT head findings as only able to update sons the day prior. Reported that IR will be back tomorrow, 09/29, for pending biopsy. would like to know if biopsy is still warranted given patient's prognosis and stage, will reach out to oncology for further guidance. Goals of care discussion took place in afternoon with sons to introduce topic of hospice. They are open to home hospice but would prefer to hear from Dr. Maldonado prior to making any decisions. Attempted to reach Dr. Maldonado today but will try again tomorrow. Exam Vital Signs Temp Pulse Resp BP Pulse Ox O2 Del Method 97.6 F 86 18 148/77 H 96 Room Air 09/28/24 07:51 09/28/24 07:51 09/28/24 07:51 09/28/24 07:51 09/28/24 07:51 09/28/24 07:51 Narrative Exam General: wakes up to answer some questions but falls asleep easily, no acute distress HEENT: NC/AT, mucous membranes moist, bilateral sclera anicteric Cardiovascular: tachycardic, regular rhythm, S1/S2 present, no murmurs appreciated Pulmonary: clear to auscultation bilaterally, no rales/rhonchi/wheezes Abdominal: tender in lower quadrants bilaterally, soft, non-distended Musculoskeletal: normal ROM, no peripheral edema Skin: warm and dry, intact, no rashes Neuro: CN II-XII intact, no focal deficits Objective Labs 09/28/24 05:17 09/28/24 05:17 Labs: Laboratory Results - last 24 hr 09/26/24 09/27/24 09/28/24 11:47 14:25 05:17 WBC 12.9 H RBC 2.74 L Hgb 7.7 L 7.4 L Hct 24.0 L 23.1 L MCV 84 MCH 27.0 MCHC 32.0 RDW Std Deviation 68.5 H Plt Count 124 L D Neut % (Auto) 65 Lymph % (Auto) 17 [place] % (Auto) 8 Eos % (Auto) 1 Baso % (Auto) 1 Neut # (Auto) 8.3 H Lymph # (Auto) 2.2 [place] # (Auto) 1.1 H Eos # (Auto) 0.1 Baso # (Auto) 0.1 Immature Gran # (Auto) 1.01 H Absolute Nucleated RBC 0.22 H Immature Gran % 8 H Nucleated RBC % 2 H PT 12.5 H INR 1.2 Sodium 140 Potassium 4.0 Chloride 108 H Carbon Dioxide 18.0 L Anion Gap 14 BUN 40 H Creatinine 1.0 D Estim Creat Clear Calc 61.0 eGFR > 60 BUN/Creatinine Ratio 40 H Glucose 120 H Calculated Osmolality 290 Calcium 8.9 Corrected Calcium 9.1 Phosphorus 4.6 Magnesium 2.2 Total Bilirubin 0.4 AST 55 H ALT 11 Alkaline Phosphatase 212 H Total Protein 6.3 Albumin 3.8 Globulin 2.5 Albumin/Globulin Ratio 1.5 Crossmatch See Detail Quality Measures Quality Measures VTE prophylaxis Assessment & Plan Assessment Current Active Medications: Generic Name Dose Route Start Last Admin Trade Name Freq PRN Reason Stop Dose Admin Acetaminophen 650 mg 09/26/24 17:53 Acetaminophen 325 Mg Tablet PO 10/26/24 17:52 Q6H PRN Fever >101.5 Hydrocodone Bitart/Acetaminophen 1 tab 09/26/24 17:53 09/27/24 14:26 Hydrocodone/Apap 5/325 Tablet PO 10/01/24 17:52 1 tab Q4HR PRN Administration PAIN SCALE 4-6 (Moderate Dexamethasone Sodium Phosphate 4 mg 09/28/24 18:00 Dexamethasone Sod Phos Inj 4 Mg/Ml Vial IV 10/05/24 17:59 Q6HR SARITA Protocol Folic Acid 1 mg 09/29/24 09:00 Folic Acid 1 Mg Tablet PO 10/29/24 08:59 QDAY SARITA Folic Acid 1 mg 09/27/24 09:00 09/27/24 11:11 Folic Acid Inj 1 Mg/0.2 Ml IVP 09/29/24 08:59 1 mg QDAY SARITA Administration Heparin Sodium (Porcine) 5,000 unit 09/26/24 21:00 09/28/24 08:51 Heparin Sod Inj 5000 Unit/Ml Vial SC 10/10/24 20:59 5,000 unit Q12HR SARITA Administration Hydromorphone HCl 1 mg 09/26/24 18:15 09/28/24 08:49 Hydromorphone Inj 2 Mg/Ml Vial IVP 10/01/24 17:52 1 mg Q4HR PRN Administration PAIN Protocol Ceftriaxone Sodium/Dextrose 50 mls @ 100 mls/hr 09/26/24 18:39 09/28/24 08:50 Rocephin/D5w 1gm Iv Premix IV 10/03/24 18:38 100 mls/hr QDAY SARITA Administration Ondansetron HCl 4 mg 09/26/24 17:53 09/27/24 17:02 Ondansetron Inj 2 Mg/Ml Inj 2 Ml IV 10/26/24 17:52 4 mg Q6H PRN Administration NAUSEA OR VOMITING Protocol Pantoprazole Sodium 40 mg 09/26/24 21:00 09/28/24 08:51 Pantoprazole Inj 40 Mg Vial IVP 10/26/24 20:59 40 mg Q12HR SARITA Administration Thiamine HCl 100 mg 09/27/24 09:00 09/28/24 08:50 Thiamine Inj 100 Mg/Ml Vial 2 Ml IVP 09/29/24 08:59 100 mg QDAY SARITA Administration Plan Nathaly Knight is a 58-year-old female with a past medical history of recently diagnosed anal adenocarcinoma (06/2024) who is admitted for work-up of intraabdominal mass, obstructive uropathy, and malnutrition. #Stage IV mucinous adenocarcinoma #Protein calorie malnutrition #Acute encephalopathy 78 lb weight loss prior to diagnosis of adenocarcinoma, altered mentation, and generalized weakness in setting of decreased p.o. intake CT A/P: large complex mass in the left abdomen (15 x 16 x 11 cm) with a 30 mm hepatic lesion and osteolytic lesion of S3 vertebral body CT head: 25 mm right temporal lobe mass with significant surrounding edema, 13 mm right frontal lobe hyperdense mass, subtle edema in left frontal and parietal lobes ? IR consulted for biopsy of intra-abdominal mass ? Will have to wait until 09/29 ? N.p.o. after midnight tonight, 09/29 ? General Surgery consulted, appreciate recommendations ? Oncology consulted, appreciate recommendations ? Pain management: Tylenol, [place], Dilaudid ? Referral to dietitian due to decreased p.o. intake ? Pending CT chest ? Dexamethasone 10 mg x 1 on 09/27, and subsequently 4 mg every 6 hours starting 09/28 ? Goals of care meeting planned for today, 09/28 #? Urinary tract infection #Obstructive uropathy, improving #Acute kidney injury, improving Humphries catheter placed with output of 2 L of dark, cola colored urine ? Ceftriaxone 1 g daily ? Follow-up urine culture #Normocytic anemia Patient noted to have chronic anemia since June 2024 S/p transfusion 1 pRBC 09/27 ? Type and cross in place ? Will continue to monitor and transfuse if Hgb < 7.0 Hospital management: Disposition: med tele Diet: High calorie/protein diet with Ensure twice daily with lunch and dinner Lines: peripheral DVT prophylaxis: heparin, hold prior to IR biopsy GI prophylaxis: pantoprazole Humphries: placed CODE STATUS: full code ----- Plan discussed with attending physician Dr. Jessica and senior resident physician Dr. Kai Tate MD PGY-1 Internal Medicine
[2024-09-28] MEDS: FOLIC ACID INJ 1 MG/0.2 ML IVP (10:58)
--- NOTE | 2024-09-28 14:37 | PC.SS ---
Funeral Planner (RAFAEL) Alix met with patient and her sons: FAINA and Prashant, as well as, Dr. Jessica and E Resident-Dr. Quinn to discuss goals of care. SW introduced self, role and reason for visit. Patient appeared to be asleep. Both sons reported that information could be provided; however, the only decision maker is patient's , Codey and he will not return until tonight. Dr. Quinn explained that he was unable to reach Oncology Dr. Maldonaod; however, based on patient's radiology findings, her prognosis is poor. At this time, he wanted to introduce Hospice. SW explained hospice and the locations that those services can be provided. Both sons requested that Dr. Maldonado be contacted for recommendations and they will speak to Codey about hospice services. Hospitalist team A and SW to reconvene with family tomorrow.
[2024-09-28] MEDS: DEXAMETHASONE SOD PHOS INJ 4 MG/ML VIAL IV ×2 (17:54→23:15)
--- NOTE | 2024-09-28 19:10 | PC.NURSE ---
No/Refused Biopsy per Codey (spouse).
--- NOTE | 2024-09-28 23:00 | PC.NURSE ---
Transferred patient from MSU to tele via bed. Patient family is at bedside with patient.
--- NOTE | 2024-09-28 23:26 | PC.NURSE ---
PLATE STACKER HAND called for [phone] on tele monitor, afib per endoscopic technician. tachycardia sustaining at 140's.
--- NOTE | 2024-09-28 23:30 | EKG_ITS ---
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
--- NOTE | 2024-09-28 23:35 | EVENTNT_ITS ---
Documentation for date of: 09/28/24 Event Note Event Note: Rapid Response Room: 382 Time: ~11:00 pm Reason for Call: Afib with rate 140s Patient presentation: Patient is sleepy, arousable to voice but answers few questions, no new complaints, denies chest pain, shortness of breath, lightheadedness, dizziness. Events: Patient was found to have afib with RvR on telemonitor, with rate 140- 150s, starting around 11 pm. EKG was ordered and confirmed afib with RvR rate of 141. Patient does not have known history of afib. Assessment: New onset afib. AM electrolytes had been in good range including potassium 4.0, magnesium 2.2, phosphorus 4.6. Will recheck electrolytes next draw. New orders: Metoprolol tartrate 5 mg IV x1. Patient then continued to have afib with rate 130s sustained, and 2 more doses of metoprolol 5 mg IV were given for a total of 3. She still sustained after that, BP was maintaining high in the 130s/90-100s thus diltiazem drip was started. Transferred to telemetry. Patient spouse, Codey, later came to bedside, updated on plan of care and discussed treatments. Codey had declined biopsy that was scheduled for tomorrow therefore patient's diet was resumed. Pending hospice discussion, which Codey states that they are most likely leaning towards. Patient was discussed with the attending, Dr. Harper. Aby Rivers, PGY-2
[2024-09-28] MEDS: METOPROLOL TARTRATE INJ 1 MG/ML AMP 5 ML 5 MG IVP (23:52)
[2024-09-29] VITALS (13 sets, daily range): BP systolic 98–139; BP diastolic 69–104; PULSE 67–142; RESP 15–97; TEMP 36.1–36.3; O2SAT 96–97
--- NOTE | 2024-09-29 00:23 | PC.NURSE ---
Pt is still Afib RVR after metoprolol 5 mg IV given. MD Rivers is made aware and she put in another order for 5 mg IVP Metoprolol
[2024-09-29] MEDS: METOPROLOL TARTRATE INJ 1 MG/ML AMP 5 ML 5 MG IVP ×2 (00:39→01:42)
--- NOTE | 2024-09-29 01:38 | PC.NURSE ---
Pt still afib RVR at this time. HR in the 120s-130s. MD Rivers is in the unit and she ordered another 5 mg IVP metoprolol
[2024-09-29] MEDS: HYDROmorphone INJ 2 MG/ML VIAL 1 MG IVP ×3 (02:15→13:45)
--- NOTE | 2024-09-29 02:26 | PC.NURSE ---
MD Rivers notified that pt is still afib rvr at this time. She said she will put in an order for diltiazem drip
[2024-09-29] MEDS: DILTIAZEM in D5W 125 MG 125 MG/125 ML BAG IV (03:27)
[2024-09-29] MEDS: DEXAMETHASONE SOD PHOS INJ 4 MG/ML VIAL IV ×2 (05:20→12:10)
[2024-09-29 06:06] LABS: Basophils # (Auto) 0.1 Thou/mm3 (0.0-0.2); Basophils % (Auto) 1 % (0-2.5); Eosinophils # (Auto) 0.1 Thou/mm3 (0.0-0.5); Eosinophils % (Auto) 0 % (0-10); Hematocrit 25.5 % (36.0-46.0); Immature Granulocytes % (Auto) 9 % (0-0); Immature Granulocytes Auto 1.28 Thou/mm3 (0.00-0.00); Lymphocytes # (Auto) 2.7 Thou/mm3 (1.0-4.8); Lymphocytes % (Auto) 19 % (10-50); Mean Corpuscular HGB Conc 31.8 g/dl (31.0-37.0); Mean Corpuscular Hemoglobin 27.2 pg (25.0-35.0); Mean Corpuscular Volume 86 fL (80-100); Monocytes # (Auto) 1.1 Thou/mm3 (0.0-0.8); Monocytes % (Auto) 7 % (0-12); Neutrophils # (Auto) 9.3 Thou/mm3 (1.8-7.7); Neutrophils % (Auto) 64 % (37-80); Nucleated Red Blood Cell # 0.27 Thou/mm3 (0.00-0.00); Nucleated Red Blood Cell % 2 /100 WBC (0); Platelet Count 140 Thou/mm3 (140-440); RDW Standard Deviation 71.5 fL (36.4-46.3); Red Blood Count 2.98 Miln/mm3 (4.00-5.20); White Blood Count 14.5 Thou/mm3 (3.6-11.0)
[2024-09-29 06:08] LABS: Hemoglobin 8.1 g/dL (12.0-16.0)
[2024-09-29 07:00] LABS: Alanine Aminotransferase 16 U/L (10-49); Albumin, Serum 3.8 gm/dL (3.4-4.8); Albumin/Globulin Ratio 1.5 (1.2-2.2); Alkaline Phosphatase 246 U/L (46-116); Anion Gap 14 (7-16); Aspartate Amino Transferase 60 U/L (0-34); BUN/Creatinine Ratio 35 Ratio (12-20); Bilirubin,Total 0.3 mg/dL (0.3-1.2); Blood Urea Nitrogen 35 mg/dL (9-23); Calcium 10.3 mg/dL (8.3-10.6); Calcium (Corrected) 10.5 mg/dL (8.5-10.1); Carbon Dioxide 20.2 mMol/L (20.0-31.0); Chloride 106 mMol/L (98-107); Globulin 2.6 gm/dL (2.3-3.5); Glucose 133 mg/dL (74-106); Magnesium 2.2 mg/dL (1.6-2.6); Osmolality,Calculated 289 (275-295); Potassium 4.3 mMol/L (3.4-5.1); Sodium 140 mMol/L (136-145); Total Protein 6.4 gm/dL (5.7-8.2); eGFR > 60 See Note
[2024-09-29 07:14] LABS: INR 1.1 (0.9-1.3); Prothrombin Time 11.4 Seconds (9.0-12.2)
[2024-09-29 07:24] LABS: Phosphorous 4.2 mg/dL (2.4-5.1)
--- NOTE | 2024-09-29 08:45 | PD.ONCPROG ---
Documentation for date of: 09/29/24 Subjective Subjective Interval history: Patient with adeno CA biopsy from anorectal site with suspected widespread mets involving abdomen bone, has turned down biopsy wishing comfort measures only. Noted to have significant heart rate of 140+ with A-fib was transferred now to telemetry. Exam Vital Signs Temp Pulse Resp BP Pulse Ox O2 Del Method 97.3 F 101 H 15 103/72 97 Room Air 09/29/24 08:00 09/29/24 08:00 09/29/24 08:00 09/29/24 08:00 09/29/24 08:00 09/29/24 08:00 Objective Objective Narrative Objective Narrative: Appearing more alert and comfortable. Labs 09/29/24 05:26 09/29/24 05:26 Labs: Laboratory Results - last 24 hr 09/29/24 05:26 WBC 14.5 H RBC 2.98 L Hgb 8.1 L Hct 25.5 L MCV 86 MCH 27.2 MCHC 31.8 RDW Std Deviation 71.5 H Plt Count 140 Neut % (Auto) 64 Lymph % (Auto) 19 [place] % (Auto) 7 Eos % (Auto) 0 Baso % (Auto) 1 Neut # (Auto) 9.3 H Lymph # (Auto) 2.7 [place] # (Auto) 1.1 H Eos # (Auto) 0.1 Baso # (Auto) 0.1 Immature Gran # (Auto) 1.28 H Absolute Nucleated RBC 0.27 H Immature Gran % 9 H Nucleated RBC % 2 H PT 11.4 INR 1.1 Sodium 140 Potassium 4.3 Chloride 106 Carbon Dioxide 20.2 Anion Gap 14 BUN 35 H Creatinine 1.0 Estim Creat Clear Calc 61.0 eGFR > 60 BUN/Creatinine Ratio 35 H Glucose 133 H Calculated Osmolality 289 Calcium 10.3 Corrected Calcium 10.5 H Phosphorus 4.2 Magnesium 2.2 Total Bilirubin 0.3 AST 60 H ALT 16 Alkaline Phosphatase 246 H D Total Protein 6.4 Albumin 3.8 Globulin 2.6 Albumin/Globulin Ratio 1.5 Assessment & Plan A&P Narrative 1. 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 Meek 07/13/2024. Likley colorectal primary with anal extension due to the pathology. 2. According to , patient believed in karine healing and did not wish any further workup or treatments at the time. 3. Declined biopsy wanting comfortable measures via hospice only at this time. Currently at telemetry with A-fib and rapid rate. Time Spent With Patient Time: Total time spent is greater than 50% in coordination of care (as documented) at patient's floor/unit and/or counseling patient:
[2024-09-29] MEDS: FOLIC ACID 1 MG TABLET PO (08:55)
[2024-09-29] MEDS: cefTRIAXone/D5w 1gm IV premix 50 ML IV (08:55)
[2024-09-29] MEDS: HEPARIN SOD INJ 5000 UNIT/ML VIAL SC (08:55)
[2024-09-29] MEDS: DILTIAZEM INJ 125 MG in DEXTROSE 5%-WATER 100 ML IV (09:15)
[2024-09-29] MEDS: PANTOPRAZOLE INJ 40 MG VIAL IVP (09:18)
--- NOTE | 2024-09-29 09:39 | PC.SS ---
Addendum entered by Allyssa Street 09/29/24 11:17: [employer] transportation will be transporting patient home with [facility] at at 1300. SS contacted patient's Codey. SS left Voicemail with ETA. Original Note: SS follow up note; SS was contacted by Letty from [facility] informing SS that patient's decided to transition patient on hospice. DME will be delivered this morning. SS met with patient's , Codey Knight and he informed SS patient would be discharging home on hospice. set up transportation through [facility], Reference # [id number]. SS will stand by for further needs.
--- NOTE | 2024-09-29 12:06 | PC.SS ---
SS follow up note; Patient's requesting more time. SS changed ETA to 3PM. SS notified Letty from [facility] as well as Nandini.
--- NOTE | 2024-09-29 13:52 | ESDS_ITS ---
<Statement entered by Digna Jessica MD - 09/29/24 17:31> I attest that I was physically present for the evaluation, physical examination, lab and imaging review of the patient with the residents. I discussed the case with the residents and agree with the findings and plans of care as documented above. Had a long discussion with patient's at bedside. Explained him in detail about patient's ongoing problems and management options. Explained again about hospice care and aggressive management. He also had discussion with Dr. Maldonado this morning. The family has decided to proceed with home hospice and declined aggressive investigation and treatment. But would like to continue antibiotics for UTI, dexamethasone for cerebral edema and diltiazem for A-fib with RVR. We will discharge patient to home with home hospice. Digna Jessica MD Planned Discharge Date 09/29/24 DS: Providers Provider Date of admission: 09/26/24 18:07 Primary care physician: Sumaya Maldonado Admitting Provider: Karly Hadley DO Attending Provider on Admission: Karly Hadley DO Consults: 09/26/24 16:41 Consult to General Surgery Stat Comment: Consulting Provider: Brit Meek 09/26/24 17:58 Consult to General Surgery Stat Comment: Consulting Provider: Brit Meek 09/26/24 17:59 Consult to Oncology Stat Comment: Consulting Provider: Ruddy Maldonado 09/27/24 12:23 Referral Registered Dietitian Routine Comment: Instructions: Poor PO intake as bowel movements cause rectal pain 09/29/24 08:42 Referral Hospice Routine Comment: Attending Provider on DC: Amol Tate MD Discharging Provider: Amol Tate MD DS: Diagnosis Problem List Completed Was Problem List Reviewed/Reconciled?: Yes Hospital Course Hospital Course Hospital course: Clara Knight is a 58-year-old female with a past medical history of 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 intake, generalized weakness, and altered mentation for approximately 1 week. She was admitted on 09/[address] A/P showed a large complex mass in the left abdomen (15 x 16 x 11 cm) with a 30 mm hepatic lesion and osteolytic lesion of the vertebral body. Also found to have pronounced bladder distention seen on imaging so a Humphries was placed and drained 2 L of dark cola colored urine. In light of her recently diagnosed adenocarcinoma, findings were suspicious of metastasis and so oncology was consulted as well as an order for IR guided biopsy of intra-abdominal mass for further guidance of management. Given timing of patient's presentation, holidays obscured plans and IR was not going to be available for biopsy until 09/29. In the meantime, to evaluate for other sites of metastasis CT head and chest were ordered but only CT head can be obtained and showed a 25 mm right temporal lobe mass with significant surrounding edema and a 13 mm right frontal lobe hyperdense mass. Family, which includes and sons, were informed about imaging findings and had thorough discussion about patient's prognosis and possible options. Dr. Maldonado, oncology, also discussed options with family who decided to forego biopsy and to pursue home hospice. Diagnoses during admission: #Stage IV mucinous adenocarcinoma #Protein calorie malnutrition #Acute encephalopathy #? Urinary tract infection #Obstructive uropathy, improving #Acute kidney injury, improving #Normocytic anemia Discharge instructions: ? Augmentin 3 times daily for 4 days ? Take dexamethasone 4 mg 3 times a day for 5 more days ? Take diltiazem 60 mg orally twice daily for to control heart rate ? Continue taking all other home medications as prescribed ? Follow-up with [facility] ----- Plan discussed with attending physician Dr. Jessica and senior resident physician Dr. Jess Tate MD PGY-1 Internal Medicine Time Spent with Patient Time attestation: Total time spent providing and/or coordinating discharge services: Exam Vital Signs Temp Pulse Resp BP Pulse Ox O2 Del Method 96.9 F 99 17 98/69 96 Room Air 09/29/24 11:57 09/29/24 11:57 09/29/24 11:57 09/29/24 11:57 09/29/24 11:57 09/29/24 11:57 Narrative Exam General: wakes up to answer some questions but falls asleep easily, no acute distress HEENT: NC/AT, mucous membranes moist, bilateral sclera anicteric Cardiovascular: tachycardic, regular rhythm, S1/S2 present, no murmurs appreciated Pulmonary: clear to auscultation bilaterally, no rales/rhonchi/wheezes Abdominal: tender in lower quadrants bilaterally, soft, non-distended Musculoskeletal: normal ROM, no peripheral edema Skin: warm and dry, intact, no rashes Neuro: CN II-XII intact, no focal deficits Discharge Plan Plan Patient Disposition: Home w/HOSPICE Patient condition on transfer: Stable Prescriptions/Referrals Prescriptions/Med Rec: New amoxicillin-pot clavulanate [Augmentin] 500-125 mg tablet 1 tab PO TID 4 Days Qty: 12 0RF dexamethasone 4 mg tablet 4 mg PO TID 7 Days Qty: 20 0RF diltiazem HCl 60 mg capsule,extended release 12 hr 60 mg PO BID 30 Days Qty: 60 0RF Continued oxycodone-acetaminophen 5-325 mg tablet 1 tab PO Q6H MDD no more than 4 tabs per day PRN (Reason: pain) Qty: 60 0RF lidocaine 5 % cream 1 applic topical BID PRN (Reason: pain) Qty: 30 0RF tramadol 100 mg tablet 100 mg PO Q6H MDD 4 tabs PRN (Reason: pain) Qty: 60 1RF ibuprofen 600 mg tablet 600 mg PO Q6H PRN (Reason: 6 tabs) Qty: 30 0RF Referrals: Sumaya Maldonado [Primary Care Provider] - Patient/Caregiver Discharge Instructions Education Materials: Resources for People with Cancer, Cancer Overview Print Language: Telugu Stand Alone Forms: Josie Award Info., Patient Portal Info Letter Discharge Order Discharge Orders: Discharge (Routine); Ordered 09/29/24 Ordered By: Rashel Quinn Quality Discharge Quality Measures VTE prophylaxis
--- NOTE | 2024-09-30 15:02 | PC.IP ---
IP received call from Lab, Red call results on blood cultures. Results Clostridium specticum. Dr. Mercado made aware patient was discharged 1-2, on appropriate antibiotics.
== END 2024-09-29 15:00 | disposition hospice, home (50) | DRG 254 ==
LOC: SERX 16:55 → SERHOLD 18:13 → S3SX 19:39 → S2NX 09-28 23:42
PROVIDERS: Registered Nurse General Practice; Admitting Provider Internal Medicine; Emergency Provider Emergency Medicine; PCP Nurse Practitioner Family; Visit Provider Student in an Organized Health Care Education/Training Program
DX: R19.00 Intra-abdominal and pelvic swelling, mass and lump, unspecified site (principal); C21.0 Malignant neoplasm of anus, unspecified; E46 Unspecified protein-calorie malnutrition; Z68.25 Body mass index [BMI] 25.0-25.9, adult; M62.82 Rhabdomyolysis; N13.9 Obstructive and reflux uropathy, unspecified; N17.9 Acute kidney failure, unspecified; D63.0 Anemia in neoplastic disease; K60.1 Chronic anal fissure; M89.58 Osteolysis, other site; K76.9 Liver disease, unspecified; G93.40 Encephalopathy, unspecified; N13.6 Pyonephrosis; I48.91 Unspecified atrial fibrillation
CPT/HCPCS: 36415; 70450; 74018; 74176; 80053; 80061; 81001; 82550; 83036; 83605; 83615; 83690; 83735; 83880; 84100; 84145; 84443; 84484; 85014; 85018; 85025; 85610; 85730; 86850; 86900; 86901; 86923; 87040; 87076; 87086; 93005; 93225; 96361; 96365; 96375; 96376; 99285; J0696; J1100; J1643; J2270; J2405; J2470; J3411; J3490; J7030; P9016; A9270; J1644